=== PATIENT | female | born 2000 | race Caucasian/White ===

== ENCOUNTER 2021-06-16 14:33 | Emergency (ER) | payer OTHER ==
--- NOTE | 2021-06-16 15:08 | ED Physician Documentation ---
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 Reports falling 5-6 [place] She was initially managed conservatively, without relief of symptom. However over the last year the pain has persisted. She reports pain every day. She has had 3 MRIs which show herniated disc and degenerative disc disease but no other worrisome findings. She has been referred to both neurosurgery and a back pain specialist without relief of symptoms. reportedly not a candidate for pain surgery Currently taking duloxetine and gabapentin daily. She denies any saddle anesthesia loss of bowel or bladder function. Pain was worse this morning limiting her ability to get out of bed thus she called [facility] who advised her to come to the ER. She reports that she has tried physical therapy in the past but it has worsened her pain so she is no longer doing it. Review of Systems Constitutional: reports: Reviewed and negative Ears: reports: Reviewed and negative Nose: reports: Reviewed and negative Throat: reports: Reviewed and negative Cardiac: reports: Reviewed and negative Respiratory: reports: Reviewed and negative GI: reports: Reviewed and negative : reports: Reviewed and negative Skin: reports: Reviewed and negative Musculoskeletal: reports: Back pain Neurologic: reports: Reviewed and negative Psychiatric: reports: Reviewed and negative Endocrine: reports: Reviewed and negative PD PAST MEDICAL HISTORY - Present Medications Home Medications: Ambulatory Orders Medication Instructions Recorded Confirmed HYDROcod/ACETAM 5/325 [[place] 5/325] 1 tablet PO BID PRN #5 tablet 06/16/21 - Allergies Allergies/Adverse Reactions: Allergies Allergy/AdvReac Type Severity Reaction Status Date / Time No Known Drug Allergies Allergy Verified 06/16/21 14:41 PD ED PE EXPANDED - General General: Alert, Well developed/nourished - Cardiac Cardiac: Regular Rate, Radial strong equal, Pedal strong equal, Cap refill < 2 sec - Respiratory Respiratory: Clear to ausultation valente. No: Distress, Labored - Abdomen Abdomen: Normal Bowel sounds. No: Tender to palpation - Back Back: Normal exam, Soft tissue tenderness (Pain across the lower paraspinous region. No midline tenderness elicited. Mildly reduced forward flexion to about 45 degrees. Motor strength 5 of 5 bilateral lower extremities. 2+ dunn llar reflexes bilaterally. Normal gait.). No: Vertebral tenderness - Derm Derm: Normal color, Warm and dry. No: Rash - Extremities Extremities: Normal. No: Deformity, Tenderness - GCS Eye Opening: Spontaneous Motor: Obeys Commands Verbal: Oriented Total: 15 Results - Vitals Vitals: Vital Signs - 24 hr 06/16/21 14:37 Temperature 36.4 C L Heart Rate 102 H Respiratory 16 Rate Blood Pressure 133/87 H O2 Saturation 100 Oxygen O2 Source Room air Departure - Departure Disposition: Home, Self Care Clinical Impression: Chronic low back pain Qualifiers: Back pain laterality: bilateral Sciatica presence: without sciatica Qualified Code(s): M54.50 - Low back pain, unspecified; G89.29 - Other chronic pain Condition: Stable Record reviewed to determine appropriate education?: Yes Prescriptions: HYDROcod/ACETAM 5/325 [[place] 5/325] 1 tablet PO BID PRN #5 tablet PRN Reason: Pain Comments: Shu unfortunately there is very little that the emergency department can do to address your chronic low back pain. It seems that you have been doing the right things by accessing a pain specialist as well as the neurosurgeon and trying physical therapy. You stated that that muscle relaxers and steroids have not been helpful in the past. I am sending a prescription for 5 [place] tablets to the [facility] in [place]. It is important that you continue to follow-up with your back pain specialist as well as [facility]. Reasons to return to the emergency department for your back pain include loss of control of your bowel or bladder function, numbness in your genital area or sudden weakness in one of your legs.
[2021-06-16 15:49] VITALS: BP 128/80
== END 2021-06-16 15:49 | disposition home or self-care (01) ==
LOC: ED 14:33
DX: M54.50 Low back pain, unspecified (principal); G89.29 Other chronic pain
CPT/HCPCS: 99282; 99283

== ENCOUNTER 2022-05-11 00:46 | Emergency (ER) | payer OTHER ==
[2022-05-11 01:00] VITALS: BP 118/75
[2022-05-11] MEDS ORDERED: IBUPROFEN 600 MG TABLET PO STA (01:45)
[2022-05-11] MEDS ORDERED: BACITRACIN ZINC OINT 1 PACKET TOP STA (01:45)
--- NOTE | 2022-05-11 01:49 | ED Physician Documentation ---
PD HPI OPHTHO - Stated complaint Stated Complaint: SWOLLEN RT EYELID - Chief complaint Chief Complaint: Heent - History obtained from History obtained from: Patient - Additional information Additional information: 21yF p/w 5 days of progressive Right upper eyelid swelling that is extremely painful, keeping her awake tonight. Also with blurring of vision related to this. she has been doing warm compresses without relief. denies fever or injury. denies possibility of foreign body. 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 : None HEENT: None Psych: Depression Musculoskeletal: Chronic back pain Derm: None - Past Surgical History Past Surgical History: No - Present Medications Home Medications: Ambulatory Orders Medication Instructions Recorded Confirmed Mupirocin 1 applic TP TID 14 Days #22 gm 05/11/22 Propranolol [Inderal] 10 mg PO DAILY 05/11/22 05/11/22 Rizatriptan Benzoate [Rizatriptan] 10 mg PO Q4HR 05/11/22 05/11/22 - Allergies Allergies/Adverse Reactions: Allergies Allergy/AdvReac Type Severity Reaction Status Date / Time No Known Drug Allergies Allergy Verified 05/11/22 01:00 - Social History Does the pt smoke?: No Smoking Status: Never smoker Does the pt drink ETOH?: No Does the pt have substance abuse?: No - Immunizations Immunizations are current?: Yes - POLST Patient has POLST: No PD ED PE NORMAL - Vitals Vital signs reviewed: Yes - General General: Alert and oriented X 3, No acute distress, Well developed/nourished - HEENT HEENT: Atraumatic, PERRL, EOMI, Other (R upper eyelid hordeolum) Results - Vitals Vitals: Vital Signs - 24 hr 05/11/22 00:58 Temperature 37.0 C Heart Rate 91 Respiratory 16 Rate Blood Pressure 118/75 O2 Saturation 100 Oxygen O2 Source Room air PD Medical Decision Making - ED course ED course: 21-year-old woman presents with hordeolum, increasing in size over the past 5 days.Antibiotic ointment provided in the emergency department and Bactroban ointment sent to her pharmacy. Plan to follow-up with ophthalmology if she does not have improvement in 1 to 2 weeks. Symptomatic care discussed. Return precautions given. Departure - Departure Disposition: 01 Home, Self Care Clinical Impression: Hordeolum Condition: Stable Instructions: ED Hordeolum Follow-Up: Raphael Thompson MD [Provider Admit Priv/Credential] - Prescriptions: Mupirocin 1 applic TP TID 14 Days #22 gm Comments: You were seen in the emergency department for hordeolum (stye). Electronic prescription was sent for mupirocin, an antibiotic ointment that covers MRSA. This was sent to [facility] in [place]. Continue warm compresses to promote drainage. Please follow-up with an office workforce planner if you do not have improvement in 48 to 72 hours. This could indicate you may need to have the stye drained. Return to the emergency department if you have new or worsening s ymptoms or other concerns.
== END 2022-05-11 02:05 | disposition home or self-care (01) ==
LOC: ED 00:46
DX: H00.011 Hordeolum externum right upper eyelid (principal)
CPT/HCPCS: 99282; 99283; A9270

== ENCOUNTER 2022-07-02 08:07 | Outpatient (CLI) | payer OTHER ==
--- NOTE | 2022-07-04 12:48 | MRI Report ---
PROCEDURE: ELBOW WO - LT INDICATIONS: PAIN IN LEFT ARM TECHNIQUE: Noncontrast coronal proton density fast spin echo and T2 fast spin echo with fat saturation, axial an d sagittal T1 spin echo and T2 fast spin echo with fat saturation through the elbow. COMPARISON: None. FINDINGS: Image quality: Excellent. Lateral structures: The lateral ulnar collateral ligament and radial collateral ligament both appear thickened. The overlying common extensor tendon also appears thickened with intrasubstance T2 hyper intense signal at its lateral epicondylar insertion. Medial structures: The ulnar collateral ligament appears intact. The overlying common flexor tendon appears normal. The ulnar nerve appears normal in size and signal within the cubital tunnel. Anterior structures: The biceps and brachialis tendons both appear intact as they insert onto the pr oximal radius and ulna, respectively. No bicipitoradial bursal fluid. The median and radial neurova scular bundles appear normal; no focal muscle atrophy to suggest nerve impingement. Posterior structures: The triceps tendon appears intact. No olecranon bursal fluid. Bone and cartilage: No bone marrow contusions or fractures. No osteochondral injuries. IMPRESSION: 1. The knee is suggestive of mild lateral epicondylitis with sprain/low-grade partial thickness tear involving lateral collateral ligaments and tendinosis and low-grade partial-thickness tear involving overlying common extensor tendon origin bilateral epicondyles. 2. No marrow edema. No fracture or dislocation. No intra-articular loose bodies. 3. Rest of the elbow tendons and ligaments are intact. Reviewed by: Suleiman Bain MD on 07/04/2022 12:47 PM PST Approved by: Suleiman Bain MD on 07/04/2022 12:47 PM PST Station ID: [id number]
== END 2022-07-02 08:08 | disposition home or self-care (01) ==
LOC: DI 08:07
PROVIDERS: ATTEND Physician Assistant
DX: M79.602 Pain in left arm (principal); R29.898 Other symptoms and signs involving the musculoskeletal system; R20.2 Paresthesia of skin